=== PATIENT | female | born 1940 | race Caucasian/White ===

== ENCOUNTER 2020-08-24 10:11 | Emergency (ER) | payer OTHER ==
[~2020-08-24] VITALS: Ht 162.6 cm; Wt 65.0 kg
[~2020-08-24 10:11] MED LIST: ADULT LOW DOSE81 MG PO; LOPRESSOR; LOPRESSOR 50 MG50 M1 PO
[2020-08-24 10:35] LABS: ABSOLUTE EOSINOPHILS 0.1 thou/uL (0.0-0.7); ABSOLUTE LYMPHOCYTES 3.8 thou/uL (0.8-5.3); ABSOLUTE MONOCYTES 0.4 thou/uL (0.0-1.2); ABSOLUTE NEUTROPHILS 4.2 thou/uL (1.6-8.1); BASOPHILS 0.4 %; EOSINOPHILS 1.1 %; HEMATOCRIT 39.5 % (37.0-47.0); HEMOGLOBIN 13.2 gm/dL (12.0-15.0); LYMPHOCYTES 44.9 %; MCH 29.1 pg (26.0-34.0); MCHC 33.3 g/dL (28.0-37.0); MCV 87.4 fL (80.0-100.0); MONOCYTES 4.4 %; MPV 6.1 fl. (7.2-11.1); NUCLEATED RBCS 0 /100WBC; PLATELET COUNT* 338 thou/uL (150-400); POLYS 49.2 %; RBC 4.52 mil/uL (4.20-5.00); WBC 8.5 thou/uL (4.0-11.0)
[2020-08-24 10:41] LABS: CALCIUM 8.4 mg/dL (8.5-10.1); CREATININE 0.8 mg/dL (0.6-1.3); POTASSIUM 3.7 mmol/L (3.5-5.1)
[2020-08-24 10:42] LABS: PROTIME 10.9 Seconds (9.20-11.50)
[2020-08-24 10:45] LABS: ALBUMIN 4.1 g/dL (3.4-5.0); TOTAL BILIRUBIN 0.4 mg/dL (<0.1-1.0)
[2020-08-24 11:39] LABS: URINE BILIRUBIN NEGATIVE (Negative); URINE BLOOD NEGATIVE (Negative); URINE CLARITY CLEAR; URINE COLOR YELLOW; URINE GLUCOSE-RANDOM TRACE (Negative); URINE KETONES NEGATIVE (Negative); URINE LEUKOCYTES TRACE (Negative); URINE NITRITE NEGATIVE (Negative); URINE PROTEIN NEGATIVE (Negative); URINE UROBILINOGEN 0.2 E.U./dl (0.2-1.0)
[2020-08-24 11:54] LABS: BACTERIA 1-9 Few /HPF (None Seen); MUCUS 0-3 Light strn/LPF (None Seen); SQUAMOUS 4-10 Moderate /LPF (0-3); URINE RBC 0-2 Rare /HPF (0-2); URINE WBC 0-5 Rare /HPF (0-5)
[2020-08-24 11:55] LABS: CASTS None Seen /LPF (None Seen); CRYSTALS None Seen /LPF (None Seen)
[2020-08-24 12:40] VITALS: BP 152/65
--- NOTE | 2020-08-24 14:57 | EKG ---
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: [facility] : 1940 Requested By: Lebron Quinteros Order Number: [id number] MD: Rusty Bland Measurements Intervals [place] Rate: 94 P: 69 [place]: 119 QRS: 54 QRSD: 94 T: 57 QT: 352 QTc: 441 Interpretive Statements Sinus rhythm Borderline short [place] interval RSR' in V1 or V2, right VCD or RVH Compared to ECG 04/25/2010 23:15:35 no change Electronically Signed On 08-24-2020 14:57:10 CDT by Rusty Bland [email or web address] <ELECTRONICALLY SIGNED> By: Rusty Bland MD, [facility] 08/24/20 1457 1012 1012 Rusty Bland MD, [facility] /EPI
== END 2020-08-24 12:41 | disposition home or self-care (01) ==
LOC: M.ERS 10:11
PROVIDERS: Emergency Medicine
DX: R00.2 Palpitations (principal); R53.83 Other fatigue; R10.30 Lower abdominal pain, unspecified; I10 Essential (primary) hypertension; I25.2 Old myocardial infarction; F17.210 Nicotine dependence, cigarettes, uncomplicated; Z90.711 Acquired absence of uterus with remaining cervical stump; Z79.82 Long term (current) use of aspirin; Z79.899 Other long term (current) drug therapy; Z88.5 Allergy status to narcotic agent; Z88.0 Allergy status to penicillin; Z91.018 Allergy to other foods

== ENCOUNTER 2020-09-07 04:40 | Inpatient (IN) | payer OTHER ==
[~2020-09-07] VITALS: Ht 160 cm; Wt 63.0 kg
[2020-09-07 04:50] VITALS: BP 206/73
[2020-09-07] MEDS ORDERED: TOPROL XL100 MG PO (04:58)
[2020-09-07 05:23] LABS: ABSOLUTE BASOPHILS 0.1 thou/uL (0.0-0.2); ABSOLUTE EOSINOPHILS 0.1 thou/uL (0.0-0.7); ABSOLUTE MONOCYTES 1.2 thou/uL (0.0-1.2); ABSOLUTE NEUTROPHILS 9.7 thou/uL (1.6-8.1); BASOPHILS 0.4 %; EOSINOPHILS 0.7 %; HEMATOCRIT 38.2 % (37.0-47.0); HEMOGLOBIN 12.9 gm/dL (12.0-15.0); LYMPHOCYTES 26.7 %; MCH 29.6 pg (26.0-34.0); MCHC 33.7 g/dL (28.0-37.0); MCV 87.8 fL (80.0-100.0); MONOCYTES 7.9 %; MPV 6.4 fl. (7.2-11.1); NUCLEATED RBCS 0 /100WBC; PLATELET COUNT* 317 thou/uL (150-400); POLYS 64.3 %; RBC 4.35 mil/uL (4.20-5.00); RDW-CV 14.3 % (10.5-14.5); WBC 15.1 thou/uL (4.0-11.0)
[2020-09-07 05:25] LABS: CALCIUM 8.8 mg/dL (8.5-10.1); CREATININE 0.7 mg/dL (0.6-1.3); POTASSIUM 3.9 mmol/L (3.5-5.1)
[2020-09-07 05:29] LABS: ALBUMIN 4.2 g/dL (3.4-5.0); TOTAL BILIRUBIN 0.4 mg/dL (<0.1-1.0); TOTAL PROTEIN 7.1 g/dL (6.4-8.2)
[2020-09-07 06:24] LABS: URINE BILIRUBIN NEGATIVE (Negative); URINE BLOOD TRACE (Negative); URINE CLARITY CLEAR; URINE COLOR YELLOW; URINE GLUCOSE-RANDOM TRACE (Negative); URINE KETONES NEGATIVE (Negative); URINE LEUKOCYTES-REFLEX NEGATIVE (Negative); URINE NITRITE-REFLEX NEGATIVE (Negative); URINE PROTEIN NEGATIVE (Negative); URINE SPECIFIC GRAVITY <= 1.005 (1.005-1.030); URINE UROBILINOGEN 0.2 E.U./dl (0.2-1.0)
--- NOTE | 2020-09-07 09:08 | EKG ---
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1940 Requested By: Radha Ratliff Order Number: [id number] MD: Homero Holbrook Measurements Intervals [place] Rate: 76 P: [place]: QRS: 66 QRSD: 97 T: 51 QT: 385 QTc: 433 Interpretive Statements Sinus rhythm Short [place] interval Incomplete right bundle branch block compared to ECG 08/24/2020 10:12:46 No significant changes noted Electronically Signed On 09-07-2020 9:08:32 CDT by Homero Holbrook [email or web address] <ELECTRONICALLY SIGNED> By: Homero Holbrook MD, FACC 09/07/20 0908 0450 0450 Homero Holbrook MD, [facility] /EPI
[2020-09-07 10:46] VITALS: BP 155/73
[2020-09-07 15:26] VITALS: BP 153/54
[2020-09-07 15:33] VITALS: BP 145/83
--- NOTE | 2020-09-07 15:38 | NUR ---
PT ADMITTED FROM ER. PT ALERT AND ORIENTED. PT ORIENTED TO ROOM. FAMILY AT BEDSIDE. PT EDUCATED ON USING CALL LIGHT WHEN NEEDING ASSISTANCE.
[2020-09-07 16:47] VITALS: BP 151/55
--- NOTE | 2020-09-07 16:50 | NUR ---
PT REMAINED ALERT AND ORIENTED. PT RESTING IN BED. PT STATES PAIN IS TOLERABLE. PT EDUCATED ON USING CALL LIGHT WHEN NEEDING PAIN MEDS. HOURLY ROUNDING COMPLETED.
[2020-09-07 20:34] VITALS: BP 143/59
[2020-09-08 04:29] VITALS: BP 158/74
[2020-09-08 04:34] LABS: ABSOLUTE EOSINOPHILS 0.1 thou/uL (0.0-0.7); ABSOLUTE LYMPHOCYTES 2.2 thou/uL (0.8-5.3); ABSOLUTE MONOCYTES 0.7 thou/uL (0.0-1.2); ABSOLUTE NEUTROPHILS 4.6 thou/uL (1.6-8.1); BASOPHILS 0.5 %; EOSINOPHILS 1.5 %; HEMATOCRIT 31.6 % (37.0-47.0); MCH 29.6 pg (26.0-34.0); MCHC 33.7 g/dL (28.0-37.0); MCV 87.7 fL (80.0-100.0); MONOCYTES 8.9 %; MPV 6.5 fl. (7.2-11.1); NUCLEATED RBCS 0 /100WBC; PLATELET COUNT* 266 thou/uL (150-400); POLYS 60.1 %; RBC 3.61 mil/uL (4.20-5.00); RDW-CV 14.1 % (10.5-14.5); WBC 7.6 thou/uL (4.0-11.0)
--- NOTE | 2020-09-08 04:38 | NUR ---
PT A&OX4, VSS ON ROOM AIR, PT UP WITH SBA. IV FLUIDS INFUSING ORDERED, LAST BAG HANGING. PAIN MED REQUESTED AND GIVEN ORDERED. PT SLEEPING WELL. ASSESSMENTS AND HOURLY ROUNDINGS COMPLETE, WILL CONTINUE TO MONITOR.
[2020-09-08 04:45] LABS: HEMOGLOBIN 10.7 gm/dL (12.0-15.0)
[2020-09-08 04:46] LABS: ALBUMIN 3.1 g/dL (3.4-5.0); CREATININE 0.7 mg/dL (0.6-1.3); POTASSIUM 3.1 mmol/L (3.5-5.1); TOTAL BILIRUBIN 0.5 mg/dL (<0.1-1.0); TOTAL PROTEIN 5.7 g/dL (6.4-8.2)
[2020-09-08 07:15] VITALS: BP 162/69
--- NOTE | 2020-09-08 13:49 | NUR ---
cm s/w pt who indicated she lives alone in an apt w/o stairs to navigate. pt stated she drives "some." pt is independent w/cares and chores. pt has no hx with hh or snf. pt dont believe she needs hh at d/c. there are no anticipated cm needs at this time.
[2020-09-08 16:35] VITALS: BP 163/59
--- NOTE | 2020-09-08 16:53 | NUR ---
PT REMAINED ALERT AND ORIENTED. PT RESTING IN BED. MEDS GIVEN FOR HEADACHE. PT DENIES ANY NEEDS. TOLERATING DIET. FALL RISK PRECAUTIONS IN PLACE. HOURLY ROUNDING COMPLETED.
[2020-09-08 19:59] VITALS: BP 156/60
[2020-09-09] VITALS: BP 164/72
[2020-09-09 04:34] LABS: ABSOLUTE EOSINOPHILS 0.2 thou/uL (0.0-0.7); ABSOLUTE LYMPHOCYTES 2.6 thou/uL (0.8-5.3); ABSOLUTE MONOCYTES 0.7 thou/uL (0.0-1.2); ABSOLUTE NEUTROPHILS 4.4 thou/uL (1.6-8.1); BASOPHILS 0.6 %; EOSINOPHILS 2.5 %; HEMATOCRIT 32.8 % (37.0-47.0); HEMOGLOBIN 11.2 gm/dL (12.0-15.0); LYMPHOCYTES 32.7 %; MCH 30.2 pg (26.0-34.0); MCHC 34.3 g/dL (28.0-37.0); MCV 87.9 fL (80.0-100.0); MONOCYTES 8.4 %; MPV 6.5 fl. (7.2-11.1); NUCLEATED RBCS 0 /100WBC; PLATELET COUNT* 285 thou/uL (150-400); POLYS 55.8 %; RBC 3.73 mil/uL (4.20-5.00); RDW-CV 14.1 % (10.5-14.5); WBC 7.9 thou/uL (4.0-11.0)
[2020-09-09 04:36] LABS: CALCIUM 8.5 mg/dL (8.5-10.1); CREATININE 0.7 mg/dL (0.6-1.3); POTASSIUM 3.1 mmol/L (3.5-5.1)
--- NOTE | 2020-09-09 04:45 | NUR ---
PT A&OX4, VSS ON ROOM AIR. PT UP WITH SBA TO BR. IV SALINE LOCKED. PRN PAIN MED REQUESTED FOR HEADACHE AND GIVEN ORDERED. ASSESSMENTS AND HOURLY ROUNDINGS COMPLETE, WILL CONTINUE TO MONITOR.
[2020-09-09 08:15] VITALS: BP 183/86
[2020-09-09] MEDS ORDERED: CIPRO500 M1 PO (10:32)
[2020-09-09] MEDS ORDERED: FLAGYL500 M1 PO (10:32)
[2020-09-09 14:23] VITALS: BP 183/86
--- NOTE | 2020-09-09 20:49 | NUR ---
I ASSUMED CARE OF THE PATIENT AT 0700. SHE IS ALERT AND ORIENTED X4 AND IS UP WITH SBA/AD DAMI WHEN AWAKE. BED IS IN THE LOW LOCKED POSITION AND CALL LIGHT IS IN REACH. HOURLY ROUNDING WAS COMPLETED AND PATIENT NEEDS ARE MET. PAIN IS DENIED. GI CONSULT IS CANCELLED. SHE IS DISCHARGED TO HOME ALONE AND HER SON PICKED HER UP AT 1430. SHE IS PROGRESSING TOWARDS HER GOALS.
== END 2020-09-09 14:35 | disposition home or self-care (01) | DRG 392 ==
LOC: M.ERS 04:40 → M.TBA-ER 06:46 → M.ORTHSURG 15:21
PROVIDERS: Personal Emergency Response Attendant; ADMIT Internal Medicine; ATTEND Internal Medicine
DX: K57.32 Diverticulitis of large intestine without perforation or abscess without bleeding (principal); N39.0 Urinary tract infection, site not specified; R65.10 Systemic inflammatory response syndrome (SIRS) of non-infectious origin without acute organ dysfunction; I10 Essential (primary) hypertension; R31.9 Hematuria, unspecified; Z20.822 Contact with and (suspected) exposure to COVID-19; Z79.82 Long term (current) use of aspirin; Z90.710 Acquired absence of both cervix and uterus; Z79.899 Other long term (current) drug therapy; Z87.891 Personal history of nicotine dependence; Z88.5 Allergy status to narcotic agent; Z88.0 Allergy status to penicillin; Z91.09 Other allergy status, other than to drugs and biological substances

== ENCOUNTER 2020-09-12 15:56 | Emergency (ER) | payer OTHER ==
[~2020-09-12] VITALS: Ht 160 cm; Wt 62.6 kg
[~2020-09-12 15:56] MED LIST changes: +CIPRO500 M1 PO; +FLAGYL500 M1 PO; +TOPROL XL100 MG PO
[2020-09-12 16:14] LABS: ABSOLUTE BASOPHILS 0.1 thou/uL (0.0-0.2); ABSOLUTE EOSINOPHILS 0.2 thou/uL (0.0-0.7); ABSOLUTE LYMPHOCYTES 4.8 thou/uL (0.8-5.3); BASOPHILS 0.8 %; EOSINOPHILS 1.9 %; HEMATOCRIT 38.8 % (37.0-47.0); HEMOGLOBIN 13.2 gm/dL (12.0-15.0); LYMPHOCYTES 43.4 %; MCHC 33.9 g/dL (28.0-37.0); MCV 88.3 fL (80.0-100.0); MONOCYTES 8.6 %; MPV 6.2 fl. (7.2-11.1); NUCLEATED RBCS 0 /100WBC; PLATELET COUNT* 348 thou/uL (150-400); POLYS 45.3 %
[2020-09-12 16:32] LABS: CALCIUM 8.8 mg/dL (8.5-10.1); CREATININE 0.8 mg/dL (0.6-1.3); POTASSIUM 3.5 mmol/L (3.5-5.1)
[2020-09-12 16:44] LABS: ALBUMIN 4.2 g/dL (3.4-5.0); CK-MB MASS 1.9 ng/mL (<0.5-3.6); MAGNESIUM 1.9 mg/dL (1.8-2.4); TOTAL BILIRUBIN 0.2 mg/dL (<0.1-1.0); TOTAL PROTEIN 6.8 g/dL (6.4-8.2)
[2020-09-12 17:24] VITALS: BP 165/65
--- NOTE | 2020-09-13 10:44 | EKG ---
[place] [address] ELECTROCARDIOGRAM REPORT Name: MCKINLEY URIOSTEGUI Room: 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1940 Requested By: Waqas Mendiola Order Number: [id number] MD: Brian Gonzalez Measurements Intervals [place] Rate: 121 P: [place]: QRS: 67 QRSD: 94 T: 21 QT: 320 QTc: 454 Interpretive Statements Atrial fibrillation Nonspecific repol abnormality, inferior leads Compared to ECG 09/07/2020 04:50:56 Sinus rhythm no longer present Atrial fibrillation is noted Electronically Signed On 09-13-2020 10:44:43 CDT by Brian Gonzalez [email or web address] <ELECTRONICALLY SIGNED> By: Brian Gonzalez MD, [facility] 09/13/20 1044 1601 1601 Brian Gonzalez MD, [facility] /EPI
--- NOTE | 2020-09-13 10:47 | EKG ---
[place] [address] ELECTROCARDIOGRAM REPORT Name: MCKINLEY URIOSTEGUI Room: [facility]#: [id number] Admission: 09/12/20 Attend Phys: Discharge: 09/12/20 Date of : 40 Date of Service: 09/12/201710 Report #: [id number] THIS REPORT FOR: //name// [facility] ED Test Date: 2020-09-12 Test Time: 17:11:02 Pat Name: MCKINLEY URIOSTEGUI Department: Room: Gender: Manager Target: JOSE DE JESUS : 1940 Requested By: Waqas Mendiola Order Number: [id number] MD: Brian Gonzalez Measurements Intervals [place] Rate: 95 P: 72 [place]: 120 QRS: 51 QRSD: 87 T: 18 QT: 340 QTc: 428 Interpretive Statements Sinus rhythm RSR' in V1 or V2 Baseline wander in lead(s) V6 Compared to ECG 09/12/2020 16:01:55 RSR' in V1 or V2 now present Atrial fibrillation no longer present Early repolarization no longer present Electronically Signed On 09-13-2020 10:47:36 CDT by Brian Gonzalez [email or web address] <ELECTRONICALLY SIGNED> By: Brian Gonzalez MD, [facility] 09/13/20 1047 10 10 Brian Gonzalez MD, [facility] /EPI
== END 2020-09-12 17:25 | disposition home or self-care (01) ==
LOC: M.ERS 15:56
PROVIDERS: Family Medicine
DX: I48.91 Unspecified atrial fibrillation (principal); Z20.822 Contact with and (suspected) exposure to COVID-19; F17.210 Nicotine dependence, cigarettes, uncomplicated; I10 Essential (primary) hypertension; Z88.5 Allergy status to narcotic agent; Z88.0 Allergy status to penicillin; Z88.8 Allergy status to other drugs, medicaments and biological substances; Z79.82 Long term (current) use of aspirin; Z90.710 Acquired absence of both cervix and uterus

== ENCOUNTER → 2020-09-29 | Outpatient (CLI) | payer OTHER ==
[2020-09-29 10:55] LABS: HEMATOCRIT 38.1 % (37.0-47.0); HEMOGLOBIN 12.8 gm/dL (12.0-15.0); MCH 29.6 pg (26.0-34.0); MCHC 33.5 g/dL (28.0-37.0); MCV 88.4 fL (80.0-100.0); MPV 6.2 fl. (7.2-11.1); RBC 4.32 mil/uL (4.20-5.00); RDW-CV 14.7 % (10.5-14.5); WBC 8.3 thou/uL (4.0-11.0)
[2020-09-29 11:14] LABS: CALCIUM 9.1 mg/dL (8.5-10.1); CREATININE 0.7 mg/dL (0.6-1.3); POTASSIUM 3.7 mmol/L (3.5-5.1)
== END ==
LOC: M.LAB 10:34
PROVIDERS: ATTEND Internal Medicine Interventional Cardiology
DX: I48.0 Paroxysmal atrial fibrillation (principal)

== ENCOUNTER 2020-10-22 13:44 | Emergency (ER) | payer OTHER ==
[~2020-10-22] VITALS: Ht 160 cm; Wt 61.2 kg
[2020-10-22] MEDS ORDERED: BACTRIM DS TAB1 EAC1 PO (13:53)
[2020-10-22 14:50] VITALS: BP 190/77
== END 2020-10-22 14:51 | disposition left against medical advice (07) ==
LOC: M.ERS 13:44
DX: Z53.21 Procedure and treatment not carried out due to patient leaving prior to being seen by health care provider (principal)

== ENCOUNTER → 2020-11-01 | Outpatient (CLI) | payer OTHER ==
[~2020-11-01] MED LIST changes: +BACTRIM DS TAB1 EAC1 PO
== END ==
LOC: M.CT 11:30
PROVIDERS: ATTEND Family Medicine
DX: K57.30 Diverticulosis of large intestine without perforation or abscess without bleeding (principal); M54.9 Dorsalgia, unspecified